=== PATIENT | male | born 1960 | race African-American/Black ===

== ENCOUNTER 2016-09-13 15:55 | Emergency (ER) | payer OTHER ==
[2016-09-13 16:09] VITALS: BMI 21.6
[2016-09-13] MEDS ORDERED: ADACEL TDaP IM ONE ×2 (16:48→16:53)
--- NOTE | 2016-09-13 17:21 | DR.LACERAT ---
HPI - Time Seen Time seen: 17:20 - Primary Care Physician Primary Care Physician: WENCESLAO HIGHTOWER - HPI Comment HPI Comment: HISTORY PER NURSE. 2 CM LAC 3RD LT FINGER. - Complaints Chief Complaint Doctors Comments: IINJURY LT 3RD FINGER SUSTAIN AT WORK BEFORE COMING. 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 Self Treatment fo Chief Complaint: LACERTION TO PTS THIRD FINGER AT THE DISTAL END APPP.. 2 CMS - Reviewed Nurses Notes Reviewed: Yes - Source History Provided: Patient - Mode of Arrival Mode of Arrival: Ambulatory - Location Left 3rd Digit Wound's Depth, Shape: Irregular Laceration Explored: Contaminated - Timing Onset of Chief Complaint: 09/13/16 - Context Mechanism: Metal Circumstance: Work-related Tetanus Vaccination: No - Severity Pain Severity: Moderate Bleeding:: Controlled - Associated Signs and Symptoms Associated Signs and Symptoms: None PMH - PMH Past Medical History: Yes Past Medical History: Arthritis Past Medical History Comment: BACK PAIN . HERNIATED DISC, Past Surgical History: No - Family History History of Family Medical Conditions: No - Social History Does patient currently use any type of tobacco product: Yes Have you used tobacco products in the last 12 months: Yes Type of Tobacco Use: Cigarettes How many years tobacco product used: 30 Does any household member use tobacco: No Alcohol Use: None Do you use any recreational Drugs:: No Lives With: Family Lives Where: Home - infectious screening In the last 2 months have you had wt loss of >10#?: NO Have you had fever, night sweats or hemotysis?: No Have you traveled outside the country in the last 6 months?: No Isolation: Standard ROS - Review of Systems Constitutional: No Symptoms Reported Eyes: No Symptoms Reported ENTM: No Symptoms Reported Respiratoy: No Symptoms Reported Cardiovascular: No Symptoms Reported Gastrointestinal/Abdominal: No Symptoms Reported Genitourinary: No Symptoms Reported Neurological: No Symptoms Reported Musculoskeletal: Left, Hand Integumentary: Other (2CM LAC LT DISTAL INDEX FINGER.) Hematologic/Lymphatic: No Symptoms Reported Endocrine: No Symptoms Reported PE - Vital Signs Vitals: Temperature 98.5 F Pulse Rate 61 Respiratory Rate 22 O2 Sat by Pulse Oximetry 100 - General Limitations: No Limitations General Appearance: Alert - Head Head Exam: Normal Inspection - Eyes Eye exam: Normal Appearance - ENT ENT Exam: Normal External Ear Exam - Neck Neck Exam: Trachea Midline - Chest Chest Inspection: Symmetric Chest Wall Rise - Respiratory Respiratory Exam: Normal Lung Sounds Bilat Respiratory Exam: Bilateral Clear to Auscultation - Cardiovascular Cardiovascular Exam: Regular Rate, Normal Rhythm, Normal Heart Sounds - Abdominal Exam Abdominal Exam: Normal Inspection - Extremities Extremities Exam: Tenderness (2CM LAC DISTAL 3RD FINGER, LEFT HAND.) - Neurologic Neurological Exam: Alert, Oriented X3 - Psychiatric Psychiatric Exam: Normal Affect, Normal Mood - Skin Skin Exam: Erythema Type of Lesion: Laceration Distribution: LUE MDM - Differential Diagnosis Differential Diagnosis: Laceration Course - Treatment Treatment: SEE ORDERS. LACERATION CLOSED IN ED. - Education/Counseling Education/Counseling: Patient, Education Educated On: Diagnosis, Needs for Follow Up Procedures - Laceration/Wound Repair Left 3rd Digit Wound Length (cm): 2 Wound's Depth, Shape: Irregular Wound Explored: contaminated Betadine Prep?: Yes Anesthesia: 1% Lidocaine Volume Anesthetic (ccs): 4 Wound Debrided: minimal Wound Repaired With: sutures Suture Size/Type: 4:0, 3:0, Ethilion Number of Sutures: 8 Layer Closure?: No Sterile Dressing Applied?: Yes Splint Applied?: No Sling Applied?: No - Diagnosis Discharge Problem: Laceration of finger of left hand Qualifiers: Encounter type: initial encounter Qualified Code(s): S61.219A - Laceration without foreign body of unspecified finger without damage to nail, initial encounter - Discharge Plan Disposition: 01 HOME, SELF-CARE Condition: Stable Prescriptions: Cephalexin [Keflex Cap 500 mg] 500 mg PO TID #30 cap Ibuprofen [MOTRIN TAB 600 MG *] 600 mg PO TID PRN #20 tab PRN Reason: Pain/Inflammation - Follow ups/Referrals Follow ups/Referrals: NFD,None [Primary Care Provider] - 2 days - Instructions Instructions: Laceration Care, Adult, [id number] Additional Instructions: suture out in 10 days.
[2016-09-13] MEDS ORDERED: KEFLEX CAP 500 MG PO ONE ×2 (17:28→17:30)
[2016-09-16 06:51] VITALS: BP 130/82
== END 2016-09-13 17:52 | disposition home or self-care (01) ==
LOC: ER 16:17
PROC: 0XQP0ZZ Repair Left Index Finger, Open Approach (ICD-10-PCS; principal; 2016-09-13)
DX: S61.211A Laceration without foreign body of left index finger without damage to nail, initial encounter (principal); W45.8XXA Other foreign body or object entering through skin, initial encounter; Y92.69 Other specified industrial and construction area as the place of occurrence of the external cause
CPT/HCPCS: 12001; 90471; 99282